=== PATIENT | male | born 1975 | race Caucasian/White ===

== ENCOUNTER 2022-02-03 13:39 | Emergency (ER) | payer BC ==
[2022-02-03] MEDS ORDERED: HYDROmorphone 1 MG/ML Syringe IVPUSH ONE (13:54)
[2022-02-03] MEDS ORDERED: Ondansetron 4 MG/2 ML SDV IVPUSH ONE (13:54)
[2022-02-03] MEDS ORDERED: Lactated Ringers 1,000 ML IV ONE (13:54)
[2022-02-03 14:24] LABS: PTT,PARTIAL THROMBOPLSTIN TIME 24.8 SEC (20.5-30.9)
[2022-02-03 14:34] LABS: CHLORIDE,CL 101 mmol/L (98-107); SODIUM,NA 138 mmol/L (136-145)
[2022-02-03 14:35] LABS: ESTIMATED GFR 95 mL/min (>=60)
[2022-02-03 14:38] LABS: BARBITURATE SCREEN,URINE NEGATIVE (NEGATIVE); BENZODIAZEPINES SCREEN,URINE POSITIVE (NEGATIVE); METHAMPHETAMINE SCREEN, URINE NEGATIVE (NEGATIVE); THC SCREEN,URINE 50 NG/ML NEGATIVE (NEGATIVE)
[2022-02-03 14:39] LABS: BUPRENORPHINE SCREEN,URINE NEGATIVE (NEGATIVE)
[2022-02-03] MEDS ORDERED: Iopamidol 612 MG/ML 100 ML Bottle IVPUSH ONE (14:45)
[2022-02-03] MEDS ORDERED: HYDROmorphone 0.5 MG/0.5 ML Syringe IVPUSH ONE (16:12)
[2022-02-03] MEDS ORDERED: Ketorolac 15 MG/ML SDV IVPUSH ONE (16:12)
== END 2022-02-03 16:39 | disposition home or self-care (01) ==
LOC: VM.ED 13:39
DX: R10.10 Upper abdominal pain, unspecified (principal); F17.210 Nicotine dependence, cigarettes, uncomplicated
CPT/HCPCS: 36415; 74177; 80053; 80305-QW; 80307; 81003; 82150; 83690; 83735; 85025; 85610; 85730; 86140; 96374; 96375; 96376; 99284; 99284-25; J1170; J1885; J2405; J7120; Q9967